=== PATIENT | male | born 1960 | race Caucasian/White ===

== ENCOUNTER 2017-03-09 07:53 | Inpatient (IN) | payer SELFPAY ==
[2017-03-09] VITALS (9 sets, daily range): BP systolic 99–122; BP diastolic 59–78
[~2017-03-09] VITALS: Ht 177.8 cm; Wt 56.9 kg
--- NOTE | ~2017-03-09 | CON ---
[place], [place] REPORT OF CONSULTATION NAME: [facility]INGTON [id number] UNIT #: [id number] ROOM: 428 DOCTOR: JESSICA PATRICK MDLIANA BIRTHDATE: [birth year] DOS: 03/12/2017 CONSULTATION REQUEST BY: Hospitalist Service. REASON FOR CONSULTATION: Recurrent acute pneumonia. HISTORY OF PRESENT ILLNESS: A 56-year-old white male without any known significant pulmonary disease. The patient has been admitted to the hospital on 03/09/2017. The patient stated that he went to work noted with severe shortness of breath with the coughing and expectorating significant amount of sputum. The patient denies any symptoms of chest pain. The patient stated that he has expectorated what appear like dark blood, not bright red for the patient and he came into the Emergency for assessment. 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 The sputum was also noted as thick green. The sputum expectoration, the patient has been decreased in the past 2 days. He denies symptoms of or chest pain. The patient does not report any symptoms of hemoptysis-like symptoms. REVIEW OF SYSTEMS: CONSTITUTIONAL: He denies any symptoms of fever or chills. Denies symptoms of change in appetite. The patient has reported about 10 pounds of body weight for the last few weeks. EYES: Denies any burning, discharge, redness or dryness. EAR, NOSE, THROAT: No sore throat, hoarseness, otalgia, postnasal drainage or epistaxis. CARDIOVASCULAR: Denies anginal pain, edema. Pain of lower extremity has been reported. Some chest pain related to his current respiratory problem and cough. However, the pain has been improving. GASTROINTESTINAL: No dysphagia, nausea, vomiting, diarrhea, abdominal pain, hematemesis, melena, or hematochezia. SKIN: Denies lesions or rashes. CENTRAL NERVOUS SYSTEM: No dizziness, headache, diplopia, syncopal episode. Remaining systems were reviewed for this patient. They were noted all negative. PAST SURGICAL HISTORY: Reported none. 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 He does use marijuana intermittently. Denies any history of alcohol use or any other illicit drug use. FAMILY HISTORY: The patient is adopted and does not have any actual family history. HOME MEDICATIONS: None. MEDICATIONS: Current administered medication noted use of IV Solu-Medrol for this patient, levalbuterol, vitamin D, Mucinex, Lovenox, Tessalon Perles, azithromycin, Rocephin as well as the lorazepam. [place], [place] REPORT OF CONSULTATION NAME: JAY HARRINGTON UNIT #: [id number] ROOM: [facility] DOCTOR: ERVIN HILLIARD MDM BIRTHDATE: [birth year] ALLERGIES: The patient drug allergy noted no known drug allergies. PHYSICAL EXAMINATION: GENERAL0: A 56-year-old male who has been currently noted to be awake and alert without acute distress. Height of the patient noted 5 feet 10 inches, weight 125, BMI 17.9. The patient appeared to be frail and older than his stated chronological age. VITAL SIGNS: The temperature of the patient was recorded as 102 degrees Fahrenheit on admission and later on the patient noted with afebrile status in the last 48 hours, respiratory rate 18-20, heart rate of 78-105, blood pressure 111/66 and the patient 122/74. Intake 1440 and output was not recorded. Pulse ox saturation is on room air for this patient and the pulse oxygen saturation recorded between 95%-97% saturation. HEENT: Shows head was atraumatic. Eyes nonicterus. NECK: Supple. Oral mucosa was moist. CARDIOVASCULAR: S1, S2 is audible. LUNGS: Scattered crackles of lungs was noted essentially in the left lower lung. Breaths are noted to mildly decreased without any wheezing heard at the present time. ABDOMEN: Soft, nontender. EXTREMITIES: The patient was noted without any edema, clubbing or cyanosis. CENTRAL NERVOUS SYSTEM: The patient was noted cranial nerves 2-12 intact. No focal deficit. SKIN: There are no visible skin lesions or rashes. MUSCULOSKELETAL: No deformities. LABORATORY DATA: CBC of the patient that was done for patient on admission on 03/09/2017, WBC count 16.7, hemoglobin 13.4, hematocrit 38.8, platelet count 308,000. The lactic acid 3.4 on admission, later noted 1.1. CMP for this patient on 03/09/2017, glucose of 132, BUN 19, creatinine was normal, sodium 132, potassium was normal. The patient was noted on admission as normal. PT and PTT 03/10/2017, was noted as normal. CMP of the patient of 03/10/2017, normal BUN and creatinine for this patient. Albumin is 2.3. The CBC of patient 03/12/2017, the patient's hemoglobin 10.1, hematocrit 29.8, WBC count normal, platelet count was normal. BMP of patient of 03/12/2017, a normal BUN and creatinine and he has electrolytes. Sputum culture, the patient spontaneous sputum culture on 08/08/2016, light growth of yeast without any other bacterial isolation. Blood culture, no bacterial growth from the 2nd, final culture results has not been reported. RADIOLOGY DATA: For this patient was personally reviewed from the PACS images. The chest x-ray of patient 03/09/2016, shows patchy infiltration noted predominantly in the lower lungs, greater on the left than the right side. CT scan of the chest was also noted for this patient and personally reviewed. CT scan of the chest shows several areas of that appears like emphysema changes, centrilobular in the upper lungs. Patchy infiltration with nodular opacity noted in the right upper lung field moderate size. In the posterior basilar subsegment superior segment was also noted significant patchy infiltration with moderate infiltration noted. Large area of infiltration was present in the lung [place], [place] REPORT OF CONSULTATION NAME: JAY HARRINGTON UNIT #: [id number] ROOM: [facility] DOCTOR: JESSICA PATRICK MD,[facility] BIRTHDATE: [birth year] with nodular component in both lungs bilaterally. Basilar area of central emphysema was also visible. The mediastinal windows was also reviewed for this patient. Subcarinal lymph node for the patient noted, enlarged with a short dimension size of 2.2 and a maximum size of 3.3 cm in size. A 2.2 cm left hilar lymph node for the patient was also noted. A 40 mm left hilar lymph node was also noted. There was no evidence of pulmonary embolism. IMPRESSION: 1. The patient who had been currently admitted to the hospital. The patient's current symptoms appear like pseudohemoptysis with multifocal pneumonia; however, lymphadenopathy noted in the mediastinum is a concern from some chronic lung disease as well with the nodular appearance of the patient. Current infiltration is suggestive of a possibility of malignancy or sarcoidosis, will remain in consideration until the complete resolution occurs. 2. History of marijuana use resulting in most likely emphysema changes. The patient could be considered as well with the cystic areas and centrilobular emphysema changes. The patient denies any tobacco use and has been worked in the [employer] for several years. He does have a CT scan of the chest, which was done in 2017 and it does not show any major infiltration or lymphadenopathy, which raises suspicion of current acute or chronic lung disease and the patient has been noted with significant weight loss of 10 pounds or more in the last few weeks, which was unintentional. PLAN OF TREATMENT: The patient has been ordered a new chest x-ray, which was reviewed for this patient that shows reduction previously pulmonary infiltration, however, the left lobe infiltration was still noted. Since the patient has been noted symptomatic improvement, he could be discharged home on Levaquin orally at 500 mg p.o. daily for the next 10 days and short-term office followup with the patient will be done. Further workup for the patient will be done based on the addition assessment done in the office to rule out malignancy, sarcoidosis or other interstitial lung diseases as well. The patient was also noted with acute exacerbation of chronic obstructive pulmonary disease for this patient's symptoms on admission treated currently with corticosteroids. All the blood cultures were noted negative. The sputum culture noted light growth of yeast, is in overgrowth. Short long-acting bronchodilator will be used for the patient for any p.r.n. respiratory symptom. Tapering dose of prednisone could be also given for this patient as well. The assessment and management for the patient has been communicated and discussed with Dr. Daiana Childers for the patient's potential consideration for home discharge. Thanks for allowing me to participate in the care of this patient. [place], [place] REPORT OF CONSULTATION NAME: JAY HARRINGTON UNIT #: [id number] ROOM: 428 DOCTOR: LIANA HILLIARD MD BIRTHDATE: [birth year] LIANA LOPEZ MD CM:CONSTR:REPORT OF CONSULTATION [id number] 03/13/17 0252 interface
--- NOTE | ~2017-03-09 | PR ---
[place], [place] PROGRESS NOTE [id number] UNIT #: [id number] ROOM: 428 DOCTOR: JESSICA PATRICK MD,LIANA BIRTHDATE: [birth year] DOS: 03/11/2017 SUBJECTIVE: She continued to show reduction of the symptoms of cough, wheezing and shortness of breath, but denies symptoms of chest pain or any hemoptysis. Speech therapy was continued. OBJECTIVE: VITAL SIGNS: Temperature recorded as normal, respiratory rate 18, heart rate of 102-97, blood pressure 111/59 this morning. pulse oxygen saturation on room air was 94% saturation. HEENT: Shows no acute change. NECK: Supple, moderate obesity. CARDIOVASCULAR: S1, S2 is audible. LUNGS: Scattered wheezing with rhonchorous breathing. There were no crackles. ABDOMEN: Soft, nontender. IMPRESSION: 1. Resolving tracheobronchitis with exacerbation of uncomplicated severe persistent bronchial asthma. 2. History of recurrent microaspiration with pulmonary infection was also noted. Currently treated with speech therapy and modification of diet. PLAN OF MANAGEMENT: The patient a dose of the steroids will be decreased at this time to 40 mg b.i.d. from 60 mg q.8h. Monitoring the response of the patient on the corticosteroids with the symptoms until tomorrow. Possible discharge the patient in the morning might be considered. LIANA LOPEZ MD CM:PNTRANS [id number] LIANA PATRICK MD 03/11/17 1727 ARJUN [email or web address].R
[~2017-03-09 07:53] MED LIST: ANTIVERT/2525 MG PO
[2017-03-09 08:25] LABS: BASO # 0.1 10*3/uL (0.0-0.1); BASO % 0.3 % (0.0-1.0); HEMATOCRIT 38.8 % (42.0-52.0); HEMOGLOBIN 13.4 g/dl (14.0-18.0); LYMPH # 0.8 10*3/uL (1.3-4.4); LYMPH % 4.7 % (27.0-41.0); MEAN CORPUSCULAR HGB 30.7 pg (27.0-31.0); MEAN CORPUSCULAR HGB CONC 34.5 g/dl (33.0-37.0); MEAN PLATELET VOLUME 9.6 fl (9.6-12.3); MONO # 0.8 10*3/uL (0.1-1.0); NEUT # 14.9 10*3/uL (2.3-7.9); NEUT % 89.2 % (47.0-73.0); PLATELET COUNT AUTOMATED 308 10*3/uL (130-400); RED BLOOD COUNT 4.36 10*6/uL (4.50-5.90); RED CELL DISTRI WIDTH 11.1 % (0-14.5); WHITE BLOOD COUNT 16.7 10*3/uL (4.8-10.8)
[2017-03-09 08:39] LABS: ALBUMIN 2.9 gm/dl (3.1-4.5); ALKALINE PHOSPHATASE 86 U/L (45-117); BUN 19 mg/dl (7-24); CHLORIDE 96 mmol/L (98-107); CREATININE 1.29 mg/dL (0.70-1.30); LIPASE 101 U/L (73-393); POTASSIUM 3.8 mmol/L (3.5-5.1); SGOT/AST 14 IU/L (3-35); SGPT/ALT 13 U/L (12-78); SODIUM 132 mmol/L (136-145); TOTAL PROTEIN 7.6 gm/dL (6.4-8.2)
[2017-03-10] VITALS: BP 123/62
[2017-03-10 08:00] VITALS: BP 116/56
[2017-03-10 08:07] LABS: HEMATOCRIT 33.5 % (42.0-52.0); MEAN CELL VOLUME 90.8 fl (80.0-94.0); MEAN CORPUSCULAR HGB 30.4 pg (27.0-31.0); MEAN CORPUSCULAR HGB CONC 33.4 g/dl (33.0-37.0); MEAN PLATELET VOLUME 10.2 fl (9.6-12.3); PLATELET COUNT AUTOMATED 267 10*3/uL (130-400); RED BLOOD COUNT 3.69 10*6/uL (4.50-5.90); RED CELL DISTRI WIDTH 11.5 % (0-14.5); WHITE BLOOD COUNT 9.1 10*3/uL (4.8-10.8)
[2017-03-10 08:10] LABS: HEMOGLOBIN 11.2 g/dl (14.0-18.0)
[2017-03-10 08:25] LABS: ALBUMIN 2.3 gm/dl (3.1-4.5); BUN 16 mg/dl (7-24); CHLORIDE 104 mmol/L (98-107); CHOLESTEROL 105 mg/dL (<200); CREATININE 0.83 mg/dL (0.70-1.30); PHOSPHOROUS 2.6 mg/dL (2.5-4.9); POTASSIUM 3.6 mmol/L (3.5-5.1); SGPT/ALT 11 U/L (12-78); SODIUM 138 mmol/L (136-145); TRIGLYCERIDES 66 mg/dl (<150); VLDL CHOLESTEROL 13 mg/dL (6-40)
[2017-03-10 08:30] LABS: ALKALINE PHOSPHATASE 67 U/L (45-117); HDL CHOLESTEROL 32 mg/dl (40-60); LDL CHOLESTEROL 60 mg/dL (9-159); SGOT/AST 5 IU/L (3-35); THYROID STIM HORMONE (HS) 0.238 uIU/ml (0.358-4.75); TOTAL PROTEIN 6.4 gm/dL (6.4-8.2)
[2017-03-10 08:33] LABS: INTERNATIONAL NORM RATIO 1.1 (2.0-3.5)
[2017-03-10 08:57] LABS: ATYPICAL LYMPHS 1 % (0-0); BURR CELLS MANY; PLATELET SUFFICIENCY NORMAL (NORMAL); ROULEAUX MODERATE; TOTAL CELLS COUNTED 100 #CELLS
[2017-03-10 09:02] LABS: VITAMIN D, 25-HYDROXY 16.2 ng/mL (30-100)
[2017-03-10 12:00] VITALS: BP 120/64
[2017-03-10 16:00] VITALS: BP 109/61
[2017-03-10 20:00] VITALS: BP 115/54
[2017-03-11] VITALS: BP 118/60
[2017-03-11 07:39] LABS: HEMATOCRIT 30.2 % (42.0-52.0); HEMOGLOBIN 10.2 g/dl (14.0-18.0); MEAN CELL VOLUME 91.2 fl (80.0-94.0); MEAN CORPUSCULAR HGB 30.8 pg (27.0-31.0); MEAN CORPUSCULAR HGB CONC 33.8 g/dl (33.0-37.0); MEAN PLATELET VOLUME 9.9 fl (9.6-12.3); PLATELET COUNT AUTOMATED 300 10*3/uL (130-400); RED BLOOD COUNT 3.31 10*6/uL (4.50-5.90); RED CELL DISTRI WIDTH 11.9 % (0-14.5)
[2017-03-11 08:00] VITALS: BP 110/58; BP 126/62
[2017-03-11 08:11] LABS: BURR CELLS FEW; PLATELET SUFFICIENCY NORMAL (NORMAL); SCHISTOCYTES FEW; TOTAL CELLS COUNTED 100 #CELLS
[2017-03-11 08:18] LABS: BUN 18 mg/dl (7-24); CHLORIDE 108 mmol/L (98-107); CREATININE 0.71 mg/dL (0.70-1.30); POTASSIUM 3.6 mmol/L (3.5-5.1); SODIUM 143 mmol/L (136-145)
[2017-03-11 12:00] VITALS: BP 111/59
[2017-03-11 16:00] VITALS: BP 102/52
[2017-03-11 20:00] VITALS: BP 111/66
[2017-03-12] VITALS: BP 123/75
[2017-03-12 07:16] LABS: HEMATOCRIT 29.8 % (42.0-52.0); HEMOGLOBIN 10.1 g/dl (14.0-18.0); MEAN CELL VOLUME 91.4 fl (80.0-94.0); MEAN CORPUSCULAR HGB CONC 33.9 g/dl (33.0-37.0); MEAN PLATELET VOLUME 9.6 fl (9.6-12.3); PLATELET COUNT AUTOMATED 294 10*3/uL (130-400); RED BLOOD COUNT 3.26 10*6/uL (4.50-5.90); RED CELL DISTRI WIDTH 11.9 % (0-14.5); WHITE BLOOD COUNT 10.4 10*3/uL (4.8-10.8)
[2017-03-12 07:27] LABS: BUN 19 mg/dl (7-24); CHLORIDE 106 mmol/L (98-107); CREATININE 0.77 mg/dL (0.70-1.30); POTASSIUM 4.3 mmol/L (3.5-5.1); SODIUM 141 mmol/L (136-145)
[2017-03-12 08:00] VITALS: BP 121/70
[2017-03-12 08:03] LABS: PLATELET SUFFICIENCY NORMAL (NORMAL); TOTAL CELLS COUNTED 100 #CELLS; TOXIC GRANULATION SLIGHT
[2017-03-12 12:00] VITALS: BP 122/74
[2017-03-12] MEDS ORDERED: LEVAQUIN500 M2 PO (14:58)
[2017-03-12] MEDS ORDERED: PROAIR HFA8.5 GM INH (14:58)
[2017-03-12] MEDS ORDERED: PREDNISONE10 MG PO (14:58)
[2017-03-12] MEDS ORDERED: MUCINEX ER600 MG PO (15:00)
[2017-03-12 16:00] VITALS: BP 120/67
== END 2017-03-12 16:55 | disposition home or self-care (01) | DRG 871 ==
LOC: ED 07:53 → 4E 11:13 → EDHOLD 11:13 → 4E 11:19
PROVIDERS: Emergency Medicine; Family Medicine; Student in an Organized Health Care Education/Training Program
DX: A41.9 Sepsis, unspecified organism (principal); J18.9 Pneumonia, unspecified organism; E44.0 Moderate protein-calorie malnutrition; E87.2 Acidosis; E87.1 Hypo-osmolality and hyponatremia; N18.3 Chronic kidney disease, stage 3 (moderate); Z68.1 Body mass index [BMI] 19.9 or less, adult; R65.20 Severe sepsis without septic shock; F12.10 Cannabis abuse, uncomplicated; D64.9 Anemia, unspecified; R73.9 Hyperglycemia, unspecified; E86.0 Dehydration

== ENCOUNTER → 2019-03-24 | Outpatient (CLI) | payer SELFPAY ==
[~2019-03-24] MED LIST changes: +LEVAQUIN500 M2 PO; +MUCINEX ER600 MG PO; +PREDNISONE10 MG PO; +PROAIR HFA8.5 GM INH
== END | disposition home or self-care (01) ==
LOC: RESCLI 10:05
DX: J43.9 Emphysema, unspecified (principal); F33.2 Major depressive disorder, recurrent severe without psychotic features; I10 Essential (primary) hypertension; F12.90 Cannabis use, unspecified, uncomplicated; R59.1 Generalized enlarged lymph nodes; R49.0 Dysphonia; R05 Cough

== ENCOUNTER 2020-11-21 07:26 | Emergency (ER) | payer SELFPAY ==
[~2020-11-21] VITALS: Ht 182.8 cm; Wt 72.6 kg
[2020-11-21] MEDS ORDERED: HYDROCODONE-AC1 EAC1 PO (10:07)
== END 2020-11-21 10:55 | disposition home or self-care (01) ==
LOC: ED 07:26
DX: S92.002A Unspecified fracture of left calcaneus, initial encounter for closed fracture (principal); Z91.040 Latex allergy status; W11.XXXA Fall on and from ladder, initial encounter; Y93.89 Activity, other specified; Y92.89 Other specified places as the place of occurrence of the external cause; Y99.8 Other external cause status